=== PATIENT | female | born 1970 | race American Indian/Alaskan Native ===

== ENCOUNTER 2018-01-09 08:47 | Emergency (ER) | payer SELFPAY ==
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
[2018-01-09 10:38] LABS: Hematocrit 40.1 % (30.3-42.9); Hemoglobin 12.8 gm/dl (10.1-14.3); Mean Corpuscular HGB Conc 32 % (30-34); Mean Corpuscular Hemoglobin 27 pg (28-32); Mean Corpuscular Volume 84 fl (79-97); Platelet Count 289 K/mm3 (140-440); Red Cell Distribution Width 15.7 % (13.2-15.2)
[2018-01-09 11:01] LABS: Alanine Aminotransferase 12 units/L (7-56); Albumin 3.7 g/dL (3.9-5); BUN/Creatinine Ratio 11; Blood Urea Nitrogen 8 mg/dL (7-17); Calcium 8.5 mg/dL (8.4-10.2); Hemolysis Index 6
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
[2018-01-09 12:32] VITALS: BP 141/94
== END 2018-01-09 12:35 | disposition home or self-care (01) ==
LOC: ED 08:47
DX: S13.9XXA Sprain of joints and ligaments of unspecified parts of neck, initial encounter (principal); S33.5XXA Sprain of ligaments of lumbar spine, initial encounter; S09.90XA Unspecified injury of head, initial encounter; Z88.6 Allergy status to analgesic agent; Z88.5 Allergy status to narcotic agent; V49.49XA Driver injured in collision with other motor vehicles in traffic accident, initial encounter; Y93.89 Activity, other specified; Y92.89 Other specified places as the place of occurrence of the external cause; Y99.8 Other external cause status
CPT/HCPCS: 36415; 70450; 72125; 72128; 72131; 80053; 84703; 85027; 99284

== ENCOUNTER 2018-01-12 10:44 | Emergency (ER) | payer OTHER ==
[2018-01-12] MEDS ORDERED: VISTARIL PO ONE (14:04)
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
[2018-01-12 14:39] VITALS: BP 146/99
== END 2018-01-12 14:40 | disposition home or self-care (01) ==
LOC: ED 10:44
DX: S06.0X0A Concussion without loss of consciousness, initial encounter (principal); Z88.6 Allergy status to analgesic agent; Z88.5 Allergy status to narcotic agent; Z88.8 Allergy status to other drugs, medicaments and biological substances; Z88.0 Allergy status to penicillin; Z79.899 Other long term (current) drug therapy; V89.0XXA Person injured in unspecified motor-vehicle accident, nontraffic, initial encounter; Y93.89 Activity, other specified; Y99.8 Other external cause status; Y92.89 Other specified places as the place of occurrence of the external cause
CPT/HCPCS: 99282; Q0177

== ENCOUNTER 2018-01-15 14:55 | Emergency (ER) | payer SELFPAY ==
--- NOTE | 2018-01-15 16:08 | Cat Scan Report ---
FINAL REPORT EXAM: CT HEAD/BRAIN WO CON HISTORY: COON, blurred vision and dizziness TECHNIQUE: CT of the Head without IV contrast. PRIORS: None currently available. FINDINGS: There is no evidence for acute ischemia. There is no hemorrhage. There is no midline shift. There is no hydrocephalus. There is no mass. Age appropriate christianson-white matter attenuation is noted. There is no calvarial fracture. The temporal bones demonstrate aerated mastoid air cells. The middle ears appear unremarkable. Paranasal sinuses are unremarkable. Globes are intact. IMPRESSION: No acute intracranial findings.
[2018-01-15 16:32] LABS: Hematocrit 42.5 % (30.3-42.9); Hemoglobin 14.1 gm/dl (10.1-14.3); Mean Corpuscular HGB Conc 33 % (30-34); Mean Corpuscular Hemoglobin 27 pg (28-32); Mean Corpuscular Volume 82 fl (79-97); Platelet Count 336 K/mm3 (140-440); Red Blood Count 5.17 M/mm3 (3.65-5.03); Red Cell Distribution Width 15.3 % (13.2-15.2)
[2018-01-15 17:04] LABS: BUN/Creatinine Ratio 12; Blood Urea Nitrogen 11 mg/dL (7-17); Calcium 9.6 mg/dL (8.4-10.2); Hemolysis Index 73
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
[2018-01-15 21:59] VITALS: BP 128/77
== END 2018-01-15 21:40 | disposition home or self-care (01) ==
LOC: ED 14:55
DX: S06.0X9A Concussion with loss of consciousness of unspecified duration, initial encounter (principal); Z88.6 Allergy status to analgesic agent; Z88.4 Allergy status to anesthetic agent; Z88.0 Allergy status to penicillin; Z88.8 Allergy status to other drugs, medicaments and biological substances; V49.9XXA Car occupant (driver) (passenger) injured in unspecified traffic accident, initial encounter; Y93.89 Activity, other specified; Y99.8 Other external cause status; Y92.410 Unspecified street and highway as the place of occurrence of the external cause
CPT/HCPCS: 36415; 70450; 80048; 84703; 85027; 93005; 93010

== ENCOUNTER 2018-10-06 06:00 | Day surgery (SDC) | payer OTHER ==
[~2018-10-06 06:00] MED LIST: LACTATED RINGERS 1,000 ML IV SCH
[2018-10-06] MEDS ORDERED: ADRENALIN IV ONE ×2 (06:49→09:00)
[2018-10-06] MEDS ORDERED: SUBLIMAZE ONE (07:16)
[2018-10-06] MEDS ORDERED: DIPRIVAN 10 MG/ML IV ONE (07:16)
[2018-10-06] MEDS ORDERED: SUBLIMAZE IV PRN (07:34)
[2018-10-06] MEDS ORDERED: ZOFRAN IV PRN (07:34)
[2018-10-06] MEDS ORDERED: DILAUDID IV PRN (07:34)
[2018-10-06] MEDS ORDERED: NARCAN 0.4 MG/1 ML IV PRN (07:34)
--- NOTE | 2018-10-06 07:34 | Anesthesia Day of Surgery ---
Anesthesia Day of Surgery - Day of Surgery Patient Examined: Yes Patient H&P Reviewed: Yes Patient is NPO: Yes Beta Blockers: No Cardiac Clearance: No Pulmonary Clearance: No
--- NOTE | 2018-10-06 07:34 | Anesthesia Consultation ---
Anesthesia Consult and Med Hx Date of service: 10/06/18 - Airway Anesthetic Teeth Evaluation: Good ROM Head & Neck: Adequate Mental/Hyoid Distance: Adequate Mallampati Class: Class II Intubation Access Assessment: Good - Pulmonary Exam CTA: Yes - Cardiac Exam Cardiac Exam: RRR - Pre-Operative Health Status ASA Pre-Surgery Classification: ASA3 Proposed Anesthetic Plan: General Nerve Block: IS - Pulmonary Hx Smoking: No Hx Sleep Apnea: No (WESLEY PRE SCREEN HIGH RISK) - Cardiovascular System Hx Hypertension: No - Central Nervous System Hx Back Pain: Yes - Other Systems Hx Cancer: No
[2018-10-06] MEDS ORDERED: ZEMURON IV ONE (07:35)
[2018-10-06] MEDS ORDERED: QUELICIN ONE (07:35)
[2018-10-06] MEDS ORDERED: DECADRON ONE (07:35)
[2018-10-06] MEDS ORDERED: NEO SYNEPHRINE ONE (07:35)
[2018-10-06] MEDS ORDERED: ROBINUL ONE (07:35)
[2018-10-06] MEDS ORDERED: NEO SYNEPHRINE/NS Syringe(OR USE) IV ONE (07:35)
[2018-10-06] MEDS ORDERED: ZOFRAN ONE (07:35)
[2018-10-06] MEDS ORDERED: XYLOCAINE MPF 2% ONE (07:35)
[2018-10-06] MEDS ORDERED: NAROPIN O.5% ONE (07:41)
[2018-10-06] MEDS ORDERED: CLEOCIN 900 MG/50 mL 900 MG/50 ML BAG IV NR (07:45)
[2018-10-06] MEDS ORDERED: NACL 0.9% IR ONE (09:30)
--- NOTE | 2018-10-06 09:58 | Short Stay Summary ---
Short Stay Documentation Date of service: 10/06/18 - History H&P: obtained from office - Allergies and Medications Current Medications: Allergies aspirin Allergy (Verified 01/12/18 11:16) Swelling codeine Allergy (Verified 01/12/18 11:16) Swelling ibuprofen Allergy (Verified 09/25/18 12:19) Swelling morphine Allergy (Verified 01/12/18 11:16) Swelling NSAIDS (Non-Steroidal Anti-Inflamma Allergy (Verified 09/25/18 12:19) Swelling , HBP oxycodone [From Percocet] Allergy (Verified 01/12/18 11:16) Swelling Penicillins Allergy (Verified 01/12/18 11:16) Swelling NARCOTICS Adverse Reaction (Uncoded 09/25/18 12:19) Swelling Home Medications Medication Instructions Recorded Confirmed Last Taken Type hydrOXYzine PAMOATE [Vistaril] 25 mg PO Q6HR PRN 09/25/18 09/25/18 Unknown History Active Medications Fentanyl (Sublimaze) 50 mcg IV Q5MIN PRN PRN Reason: Pain , Severe (7-10) Stop: 10/06/18 20:00 Hydromorphone HCl (Dilaudid) 0.5 mg IV Q10MIN PRN PRN Reason: Pain , Severe (7-10) Stop: 10/06/18 20:00 Lactated Ringer's (Lactated Ringers) 1,000 mls @ 75 mls/hr IV DIRECT LOUIS Stop: 10/06/18 23:59 Clindamycin HCl (Cleocin 900 Mg/50 Ml) 900 mg in 50 mls @ 100 mls/hr IV PREOP NR; Protocol Stop: 10/06/18 23:59 Naloxone HCl (Narcan 0.4 Mg/1 Ml) 0.1 mg IV Q2MIN PRN PRN Reason: Res Rate </= 8 or 02 SAT < 92% Ondansetron HCl (Zofran) 4 mg IV ONCE PRN PRN Reason: Nausea And Vomiting - Brief post op/procedure progress note Date of procedure: 10/06/18 Pre-op diagnosis: persistent right shoulder pain, AC joint arthritis, partial rotator cuff te Post-op diagnosis: other (persistent right shoulder pain, AC joint arthritis, partial rotator cuff tear, extensive subacromial bursitis) Procedure: right shoulder arthroscopy subacromial decompression, distal clavicle excision, debridement of extensive subacromial bursitis and partial rotator cuff tear Anesthesia: GETA Findings: as above Surgeon: KATALINA ANDRADE Estimated blood loss: minimal Pathology: none Condition: stable - Disposition Condition at discharge: Good Disposition: DC-01 TO HOME OR SELFCARE Short Stay Discharge Plan Follow up with: PRIMARY CARE, [Primary Care Provider] - 7 Days
[2018-10-06 10:54] VITALS: BP 124/77
--- NOTE | 2018-10-06 13:17 | Operative Report ---
PREOPERATIVE DIAGNOSES: Persistent right shoulder pain, acromioclavicular joint hypertrophy with inferior spur of the distal clavicle and acromion causing impingement upon the rotator cuff, partial thickness rotator cuff tear. POSTOPERATIVE DIAGNOSES: Persistent right shoulder pain, acromioclavicular joint hypertrophy with inferior spurs distal clavicle and acromion causing significant impingement upon the rotator cuff, partial thickness tearing of the subscapularis tendon, encompassing approximately 10%-15% of the width of the tendon intraarticularly as well as partial bursal-sided tearing of the supraspinatus tendon, encompassing approximately 10% of the width of the tendon as well and extensive subacromial bursitis. OPERATIVE PROCEDURE: Right shoulder arthroscopy, subacromial decompression, distal clavicle excision and debridement of extensive subacromial bursitis and debridement of partial thickness rotator cuff tear. SURGEON: Dr. Jacob Gillespie. NUCLEAR POWERPLANT MECHANIC HELPER: None. ANESTHESIA: General plus an interscalene block to the operative right upper extremity. PREOPERATIVE ANTIBIOTICS: Clindamycin 900 mg IV given within 1 hour of skin incision. DVT PROPHYLAXIS: Bilateral knee high compression hose and SCD pumps to bilateral lower extremities. OPERATIVE INSTRUMENTATION: None. OPERATIVE COMPLICATIONS: None. OPERATIVE HISTORY AND PHYSICAL: This is a 47-year-old female, who is right-hand dominant, who has had persistent progressively worsening right shoulder pain. The pain has failed to improve despite extensive nonoperative treatment and is markedly limiting her activities of daily living. After failing to improve with nonoperative treatment, we discussed surgical treatment alternatives of surgical and nonsurgical including risks and benefits of both. After a long lengthy discussion, the patient opted to proceed with operative intervention. This will entail a right shoulder arthroscopy, subacromial decompression, distal clavicle excision, possible rotator cuff repair and surgery as indicated. The risk of which were discussed to include but not exclusive of infection, blood loss, nerve damage, loss of range of motion, and persistent pain. Again, the patient understood, all of her questions were answered and she wished to proceed with operative intervention. OPERATIVE PROCEDURE: The patient was seen in the preoperative holding area, at which point informed consent was reviewed and the appropriate right upper extremity was identified and then marked. Anesthesia then performed an interscalene block to the right upper extremity. After confirmation of adequate analgesia of the right upper extremity, the patient was then brought back to the operating room and placed supine on the standard operating room table with a beach chair positioner already in place. General anesthesia was then administered and an endotracheal tube was inserted. After confirmation of adequate general anesthesia and checking appropriate placement of the endotracheal tube, we then made sure that all bony prominences were well padded. We made sure that there were no wrinkles and compression stockings on bilateral lower extremities and a thigh high SCD pumps were applied to bilateral lower extremities. The patient was then sat up in the beach chair position using the beach chair positioner, which was already in place and her head was secured in a nice neutral position. The well left arm was secured in a neutral position of the patient's side with the aid of the well arm garnica. A pillow was placed beneath the posterior aspect of bilateral lower extremities, placed in slight flexion of the hips and knees, making sure the popliteal fossa was free and clear and her heels were well padded with Eggcrate. Following this, the right upper extremity was then examined under anesthesia. The patient was seen to have full range of motion and there was no evidence of instability. Following examination under anesthesia, the right upper extremity was then prepped and draped in the usual sterile fashion. After prepping and draping, a timeout was called and appropriate right upper extremity was identified which again had been marked in the preoperative holding room area. We began our procedure by first making a standard posterior portal with a #15 blade. Once the portal was established, the cannula with the blunt trocar was inserted into the intra-articular aspect of the glenohumeral joint. This went without difficulty or damage to articular cartilage. Once in place, the arthroscopic camera was immediately placed in the anterior aspect of the shoulder joint. We established our anterior portal by first inserting an 18-gauge spinal needle under direct arthroscopic visualization from the subscapularis and biceps tendons. Once confirmed to be in appropriate position, a 15 blade was then used to establish an anterior portal. Once the portal was established, the blunt trocar was inserted to widen the portal site. Following that an arthroscopic probe, we began our diagnostic arthroscopy in the anterior aspect of the shoulder joint, where the patient was seen to have a partial tear of the subscapularis tendon complex approximately 10%-15% of the width of the tendon. This was debrided using 4.0 meniscal shaver and hemostasis was achieved with the Arthrocare ablation wand. Once completed, we turned our attention to the glenohumeral joint, where there was seen to be normal articular cartilage. There were no tears in the anterior superior or posterior labrum. Inspection of the axillary recess showed to be free and clear of all loose bodies. The biceps tendon was seen to be intact. Next, the shoulder was in its normal relation without any tearing. Inspection of the articular side of the rotator cuff showed to be intact and stable when probed. There was a negative drive-through sign. There was certainly no instability. The arthroscopic pump was turned off to make sure there was good hemostasis. Once this was confirmed, the extraneous fluid was suctioned from the glenohumeral joint using the arthroscopic cannula. Following this, all the arthroscopic instrumentation was removed and then placed in the subacromial space. Once in the subacromial space, we saw there was severe extensive subacromial bursitis. A third incision was made in the lateral aspect of the shoulder in line with the distal clavicle well away from axillary nerve. Once the incision was made, a blunt trocar was inserted to widen the portal site. Following that, we debrided the extensive subacromial bursitis using the 4.0 meniscal shaver. Once debrided, the arm was placed through a full range of motion. We saw that there was severe impingement of the rotator cuff upon the undersurface of both the acromion and the distal clavicle. Following this, the soft tissue was removed from the undersurface of the acromion using Arthrocare ablation wand and then using the 4.0 hooded barrel bur, we carried out a subacromial decompression in standard fashion going from inferior to superior, posterior to anterior making sure not to leave any residual anterior hook. We then turned our attention to the distal clavicle, which was also seen to be arthritic and then using the 4.0 hooded barrel bur, we carried distal clavicle excision to a depth of approximately 6-8 mm. Once this was completed, we turned our attention to the bursal side of the rotator cuff, where there was a partial thickness tear of the supraspinatus tendon in the area of the impinging spurs of the acromion encompassing approximately 10% with tendon. This was debrided using 4.0 meniscal shaver. Once completed, the arm was again placed through a full range of motion under direct arthroscopic visualization and we confirmed that there was no further impingement of the rotator cuff upon the undersurface of the acromion or the distal clavicle. There was a thickened markedly inflamed coracoacromial ligament contributing to impingement. Therefore, a portion of this was taken down using the Arthrocare ablation wand, making careful attention to cauterize the acromial branch of the thoracoacromial artery. Once completed, the arthroscopic pump was turned off to make sure there was good hemostasis. Once this was confirmed, the extraneous fluid was suctioned from the subacromial space using the arthroscopic cannula. Following this, all arthroscopic instrumentation was removed. The 3 portal sites were closed with 3-0 nylon in simple fashion. Adaptic, 4 x 4s, ABD, Medipore dressing, the small abduction sling and the Donjoy Cryo/Cuff blanket was applied. The patient was then sat down from beachchair into the supine position, was awakened from general anesthesia without complications and taken to the recovery room in stable condition. Standard postoperative orders were written. [facility]# [id number] PEGGY/TAYO
--- NOTE | 2018-10-06 16:47 | Post Anesthesia Evaluation ---
- Post Anesthesia Evaluation Patient Participated: Yes Airway Patent: Yes Stable Respiratory Function: Yes Nausea/Vomiting: No Temp > 96.8F: Yes Pain Manageable: Yes Adequeate Hydration: Yes Anesthesia Complications: No
== END 2018-10-06 11:40 | disposition home or self-care (01) ==
LOC: OR 06:00
PROVIDERS: ATTEND Orthopaedic Surgery
DX: M75.51 Bursitis of right shoulder (principal); M75.41 Impingement syndrome of right shoulder; M75.101 Unspecified rotator cuff tear or rupture of right shoulder, not specified as traumatic; G43.909 Migraine, unspecified, not intractable, without status migrainosus; K21.9 Gastro-esophageal reflux disease without esophagitis; Z88.6 Allergy status to analgesic agent; Z88.0 Allergy status to penicillin; Z88.5 Allergy status to narcotic agent; Z79.899 Other long term (current) drug therapy; Z86.711 Personal history of pulmonary embolism; Z98.890 Other specified postprocedural states; Z88.8 Allergy status to other drugs, medicaments and biological substances
CPT/HCPCS: 29822; 29824; 29826; 64450; 81025; 82962; A4217; J0171; J0330; J1100; J2370; J2405; J2704; J2795; J3010; J7120; L1830

== ENCOUNTER 2018-10-09 09:22 | Emergency (ER) | payer SELFPAY ==
[2018-10-09 10:26] LABS: Basophils # (Auto) 0.1 K/mm3 (0.0-0.1); Eosinophils # (Auto) 0.1 K/mm3 (0.0-0.4); Eosinophils % (Auto) 2.3 % (0.0-4.3); Hematocrit 36.7 % (30.3-42.9); Hemoglobin 12.1 gm/dl (10.1-14.3); Lymphocytes # (Auto) 1.2 K/mm3 (1.2-5.4); Lymphocytes % (Auto) 19.3 % (13.4-35.0); Mean Corpuscular HGB Conc 33 % (30-34); Mean Corpuscular Volume 81 fl (79-97); Monocytes # (Auto) 0.5 K/mm3 (0.0-0.8); Monocytes % (Auto) 8.3 % (0.0-7.3); Platelet Count 290 K/mm3 (140-440); Red Blood Count 4.55 M/mm3 (3.65-5.03); Red Cell Distribution Width 15.5 % (13.2-15.2)
[2018-10-09 10:37] LABS: INR 0.84 (0.87-1.13)
[2018-10-09 10:38] LABS: Partial Thromboplastin Time 21.7 Sec. (24.2-36.6)
[2018-10-09 10:48] LABS: BUN/Creatinine Ratio 14; Blood Urea Nitrogen 13 mg/dL (7-17); Calcium 8.7 mg/dL (8.4-10.2); Hemolysis Index 5
[2018-10-09 10:53] LABS: Creatine Kinase MB < 1.0 ng/mL (0.0-4.0)
--- NOTE | 2018-10-09 10:53 | Emergency Department Report ---
HPI - General Chief Complaint: Dyspnea/Respdistress Time Seen by Provider: 10/09/18 10:02 - HPI HPI: 47-year-old female presents to the emergency department with a 2-3 day history of shortness of breath after having right rotator cuff surgery done here by Dr. Katalina Gillespie. The patient has a history of previous PE. Patient was given a dose of Lovenox tonight of her surgery and then was given a prescription to take Lovenox but the patient was unable to fill it until last night, 2 days later. She denies any chest pain but she feels like she has difficulty taking deep breaths. She also has a history of borderline diabetes, diet controlled acid reflux, previous migraines. She is not a tobacco smoker and denies any illicit drug use. No primary care physician. ED Past Medical Hx - Past Medical History Previous Medical History?: Yes Hx Hypertension: No Hx Diabetes: (UNSURE- RECENT HIGH A1C) Hx Pulmonary Embolism: Yes (2005- ON COUMADIN X 6 MONTHS) Hx GERD: Yes (DIET CONTROLLED) Hx Headaches / Migraines: Yes (MIGRAINES) - Surgical History Past Surgical History?: Yes Additional Surgical History: left knee scope 2005- dvt devolped during procedure, placed on coumadin for 6 months - Social History Smoking Status: Never Smoker Substance Use Type: None - Medications Home Medications: Home Medications Medication Instructions Recorded Confirmed Last Taken Type hydrOXYzine PAMOATE [Vistaril] 25 mg PO Q6HR PRN 09/25/18 09/25/18 Unknown History Enoxaparin [Lovenox] 30 mg SQ Q12HR 7 Days #14 syringe 10/06/18 Unknown Rx traMADol [Ultram] 50 mg PO Q6HR PRN #30 tablet 10/06/18 Unknown Rx ALBUTEROL Inhaler (OR & NICU) 2 puff IH QID PRN #1 inhalation 10/09/18 Unknown Rx [ProAir HFA Inhaler] Fluticasone [Flonase] 1 spray NS QDAY #1 bottle 10/09/18 Unknown Rx guaiFENesin [Mucinex] 600 mg PO BID #10 tab.er.12h 10/09/18 Unknown Rx ED Review of Systems ROS: Stated complaint: JESSICA Other details as noted in HPI Comment: All other systems reviewed and negative Constitutional: denies: chills, fever Eyes: denies: eye pain, vision change ENT: denies: ear pain, throat pain Respiratory: shortness of breath. denies: wheezing Cardiovascular: denies: chest pain, edema Gastrointestinal: denies: abdominal pain, vomiting Genitourinary: denies: dysuria, frequency Musculoskeletal: denies: back pain, arthralgia Skin: denies: rash, lesions Neurological: denies: headache, weakness Physical Exam - Physical Exam Vital Signs: Vital Signs 10/09/18 09:32 Temperature 98.4 F Pulse Rate 86 Respiratory 17 Rate Blood Pressure 141/90 O2 Sat by Pulse 99 Oximetry Physical Exam: GENERAL: The patient is well-developed well-nourished. HENT: Normocephalic. Atraumatic. Patient has moist mucous membranes. EYES: Extraocular motions are intact. Pupils equal reactive to light bilaterally. NECK: Supple. Trachea is midline. CHEST/LUNGS: Clear to auscultation. There is no respiratory distress noted. HEART/CARDIOVASCULAR: Regular. There is no tachycardia. There is no murmur. ABDOMEN: Abdomen is soft, nontender. Patient has normal bowel sounds. There is no abdominal distention. SKIN: Skin is warm and dry. NEURO: The patient is awake, alert, and oriented. The patient is cooperative. The patient has no focal neurologic deficits. The patient has normal speech. MUSCULOSKELETAL: The right upper extremity is immobilized construct body secondary to recent rotator cuff surgery. She is neurovascularly intact. ED Course Vital Signs 10/09/18 09:32 Temperature 98.4 F Pulse Rate 86 Respiratory 17 Rate Blood Pressure 141/90 O2 Sat by Pulse 99 Oximetry ED Medical Decision Making - Lab Data Result diagrams: 10/09/18 10:09 10/09/18 10:09 - EKG Data -: EKG Interpreted by Me EKG shows normal: sinus rhythm, axis, intervals, QRS complexes, ST-T waves Rate: normal - EKG Data When compared to previous EKG there are: previous EKG unavailable Interpretation: normal EKG - Radiology Data Radiology results: report reviewed, image reviewed interpreted by me: Chest x-ray does not show any acute process. There are no pleural effusions, obvious pneumonia and there is no pneumothorax. Abdominal x-ray shows nonspecific nonobstructive bowel gas CT ABDOMEN AND PELVIS WITHOUT CONTRAST INDICATION: Evaluate for free air. COMPARISON: None similar. FINDINGS: Noncontrast abdomen and pelvis CT performed. LUNG BASES: Left hemidiaphragm mildly higher than the right. Nonspecific distal esophageal wall prominence/thickening, not excluded for gastroesophageal reflux and/or hiatal hernia, amongst others. ABDOMEN: Please note that sensitivity to detect small visceral lesions is limited due to the absence of intravenous or oral contrast. Exam is limited due to streak artifact from patient's arms across the upper abdomen. However, grossly unremarkable unenhanced liver, spleen, gallbladder, pancreas, adrenals, aorta and IVC. Nonhydronephrotic kidneys with contrast excretion from earlier administration noted. Nonopacified GI tract valuation limited, though grossly nonobstructive. Few descending colon diverticuli. Small fat containing umbilical hernia with a transverse neck of 1.8 cm. Large lobulated soft tissue arising from the pelvis noted within the lower abdomen and rising up to the level of the lower pole of the left kidney as on axial series 2, from images 49 inferiorly. It also demonstrates few intrinsic calcified fibroid regions as in the right lower quadrant measuring 2.9 cm on axial image 74. No ascites or definite size significant adenopathy. No pneumoperitoneum. PELVIS: Myomatous uterus estimated at approximately 19 cm craniocaudal with maximum AP and transverse measurements in the lower abdomen approximately 12 x 25 cm as on axial series 2, image 61. Dense excreted contrast opacifying the urinary bladder create streak artifact, limiting exam. Mild rectosigmoid stool. No free fluid or significant adenopathy. A 1 cm left proximal femoral nonspecific medullary sclerotic focus, axial image 109, series 2. Mild bilateral hip and SI joint degenerative changes. CONCLUSION: No acute CT abnormality on this limited, unenhanced exam with various other findings, including a large, myomatous uterus extending into the lower abdomen, as detailed above. Please correlate. Thank you for the opportunity to participate in this patient's care. Transcribed By: RS Dictated By: SHANI KWOK MD Electronically Authenticated By: SHANI KWOK MD Signed Date/Time: 10/09/18 9547 PROCEDURE: CT ANGIO CHEST TECHNIQUE: Computerized tomographic angiography of the chest was performed after the IV injection of iodinated nonionic contrast including image processing. The image data was postprocessed using 2-dimensional multiplanar reformatted (MPR) and 3-dimensional (MIP and/or volume rendered) techniques. Automated exposure control, adjustment of mA and/or kV according to patient size, or iterative reconstruction dose optimization techniques were utilized. Coronal and sagittal reconstructed imaging provided. CT DOSE LENGTH PRODUCT: 764.7 mGy-cm. HISTORY: SOB, post op, Hx of PE COMPARISONS: None currently available. FINDINGS: No pneumothorax. No effusion. No consolidation. No endobronchial lesion. Main pulmonary artery is unremarkable. No pulmonary embolism. No aneurysm. No dissection. Major branch arteries are within normal limits. No significant atherosclerotic disease. Cardiac silhouette is within normal limits. No pericardial effusion. No obvious coronary artery disease. There is no axillary adenopathy. There is no hilar or mediastinal mass or adenopathy. Limited images of the thyroid gland are unremarkable. Limited images of the esophagus are unremarkable. Series 4:1-28 demonstrates soft tissue stranding and subcutaneous gas in the right lower cervical region/shoulder. Surrounding minimal stranding noted. The right deltoid and pectoralis muscles do appear slightly prominent with stranding. No distinct fluid collection identified. Free air in the abdomen. Bones: No suspicious osseous lesions on this limited examination of the skeleton. Metastatic disease better evaluated with bone scan. Degenerative changes are present in the spine. IMPRESSION: * Nonspecific muscular prominence with soft tissue stranding and subcutaneous gas in the right lower cervical region/shoulder is nonspecific and could be related to recent surgery. Free air in the upper abdomen may be related to recent surgery. Please correlate with clinical history. * No pulmonary last. No aortic aneurysm. No dissection. This document is electronically signed by Matthieu Mata MD., Oct 09 2018 12:30:46 PM ET Transcribed By: TYM Dictated By: MATTHIEU MATA MD Electronically Authenticated By: MATTHIEU MATA MD Signed Date/Time: 10/09/18 1232 - Medical Decision Making This patient came into the emergency department with complaint of some shortness of breath has been going on since after her rotator cuff surgery, a few days ago. Vital signs are stable including being afebrile and no hypoxia. Patient does not appear in any respiratory distress. She has no complaint of any lower extremity swelling. EKG did not show any signs of ST elevation MT, ischemia or dysrhythmia. Chest x-ray did not show any pleural effusions, pneumonia, pneumothorax, focal consolidation, or any other acute process. Given the recent surgery and therefore some immobility, history of previous PE and some recent medication noncompliance with the Lovenox, a CT angiography of the chest was performed to rule out a pulmonary embolism. The results did not show any PE but was read by radiology is concern for some incidental upper abdominal free air found. For this reason, CT of the abdomen and pelvis was then performed that did not show any free air or any other acute process. The patient was given a breathing treatment with some good improvement of her symptoms. She was seen ambulatory and did not have any increased work of breathing or signs of any respiratory distress. She will be discharged home with an albuterol inhaler, Flonase and a few days of some Mucinex for her complaint of secretions. She will follow-up with her primary care physician and orthopedist, and will return to the ER with any worsening of her symptoms, development of chest pain, or with any acute distress. - Differential Diagnosis PE, pneumonia, bronchitis, asthma Critical Care Time: No Critical care attestation.: If time is entered above; I have spent that time in minutes in the direct care of this critically ill patient, excluding procedure time. ED Disposition Clinical Impression: Shortness of breath Disposition: DC-01 TO HOME OR SELFCARE Is pt being admited?: No Condition: Stable Instructions: Dyspnea (ED) Additional Instructions: Please follow-up with your primary care physician and your orthopedist. Return to the emergency Department with any worsening of your symptoms or any acute distress. Prescriptions: Fluticasone [Flonase] 1 spray NS QDAY #1 bottle guaiFENesin [Mucinex] 600 mg PO BID #10 tab.er.12h ALBUTEROL Inhaler (OR & NICU) [ProAir HFA Inhaler] 2 puff IH QID PRN #1 inhalation PRN Reason: Shortness Of Breath Referrals: PRIMARY CARE, [Referring] - 3-5 Days KATALINA GILLESPIE MD [Staff Physician] - 3-5 Days Time of Disposition: 14:48
--- NOTE | 2018-10-09 11:09 | XRay Report ---
PORTABLE CHEST INDICATION: Chest pain, shortness of breath. COMPARISON: None similar. FINDINGS: Portable, frontal chest radiograph demonstrates left hemidiaphragm approximately 2.5 cm higher than the left. Normal cardiomediastinal silhouette. Clear lungs. Bilateral AC joint degenerative changes/irregularities possible. Subtle right supraclavicular subcutaneous emphysema also not entirely excluded. EKG leads. CONCLUSION: No acute chest process with few other findings, as above. Please correlate. Thank you for the opportunity to participate in this patient's care.
[2018-10-09] MEDS ORDERED: DUONEB *Not for PRN Use IH ONE (11:52)
--- NOTE | 2018-10-09 12:32 | Cat Scan Report ---
PROCEDURE: CT ANGIO CHEST TECHNIQUE: Computerized tomographic angiography of the chest was performed after the IV injection of iodinated nonionic contrast including image processing. The image data was postprocessed using 2-di mensional multiplanar reformatted (MPR) and 3-dimensional (MIP and/or volume rendered) techniques. Au tomated exposure control, adjustment of mA and/or kV according to patient size, or iterative reconstr uction dose optimization techniques were utilized. Coronal and sagittal reconstructed imaging provide d. CT DOSE LENGTH PRODUCT: 764.7 mGy-cm. HISTORY: SOB, post op, Hx of PE COMPARISONS: None currently available. FINDINGS: No pneumothorax. No effusion. No consolidation. No endobronchial lesion. Main pulmonary artery is unremarkable. No pulmonary embolism. No aneurysm. No dissection. Major branch arteries are within normal limits. No significant atheroscle rotic disease. Cardiac silhouette is within normal limits. No pericardial effusion. No obvious coronary artery disea se. There is no axillary adenopathy. There is no hilar or mediastinal mass or adenopathy. Limited images of the thyroid gland are unremarkable. Limited images of the esophagus are unremarkable. Series 4:1-28 demonstrates soft tissue stranding and subcutaneous gas in the right lower cervical reg ion/shoulder. Surrounding minimal stranding noted. The right deltoid and pectoralis muscles do appear slightly prominent with stranding. No distinct fluid collection identified. Free air in the abdomen. Bones: No suspicious osseous lesions on this limited examination of the skeleton. Metastatic disease better evaluated with bone scan. Degenerative changes are present in the spine. IMPRESSION: * Nonspecific muscular prominence with soft tissue stranding and subcutaneous gas in the right lower cervical region/shoulder is nonspecific and could be related to recent surgery. Free air in the uppe r abdomen may be related to recent surgery. Please correlate with clinical history. * No pulmonary last. No aortic aneurysm. No dissection. This document is electronically signed by Matthieu Green MD., Oct 09 2018 12:30:46 PM ET
--- NOTE | 2018-10-09 13:38 | XRay Report ---
ABDOMEN RADIOGRAPHS INDICATION: Abdominal pain. COMPARISON: None similar. FINDINGS: Frontal abdominal radiographs demonstrate nonobstructive bowel gas pattern. Bilateral contrast excretion noted from CT earlier today. Lung bases/upper abdomen excluded from the superior radiographic margin. EKG leads. Intact bones. CONCLUSION: No acute abdominal radiographic abnormality, as described. Thank you for the opportunity to participate in this patient's care.
--- NOTE | 2018-10-09 14:38 | Cat Scan Report ---
CT ABDOMEN AND PELVIS WITHOUT CONTRAST INDICATION: Evaluate for free air. COMPARISON: None similar. FINDINGS: Noncontrast abdomen and pelvis CT performed. LUNG BASES: Left hemidiaphragm mildly higher than the right. Nonspecific distal esophageal wall prominence/thickening, not excluded for gastroesophageal reflux and/or hiatal hernia, amongst others. ABDOMEN: Please note that sensitivity to detect small visceral lesions is limited due to the absence of intravenous or oral contrast. Exam is limited due to streak artifact from patient's arms across the upper abdomen. However, grossly unremarkable unenhanced liver, spleen, gallbladder, pancreas, adrenals, aorta and IVC. Nonhydronephrotic kidneys with contrast excretion from earlier administration noted. Nonopacified GI tract valuation limited, though grossly nonobstructive. Few descending colon diverticuli. Small fat containing umbilical hernia with a transverse neck of 1.8 cm. Large lobulated soft tissue arising from the pelvis noted within the lower abdomen and rising up to the level of the lower pole of the left kidney as on axial series 2, from images 49 inferiorly. It also demonstrates few intrinsic calcified fibroid regions as in the right lower quadrant measuring 2.9 cm on axial image 74. No ascites or definite size significant adenopathy. No pneumoperitoneum. PELVIS: Myomatous uterus estimated at approximately 19 cm craniocaudal with maximum AP and transverse measurements in the lower abdomen approximately 12 x 25 cm as on axial series 2, image 61. Dense excreted contrast opacifying the urinary bladder create streak artifact, limiting exam. Mild rectosigmoid stool. No free fluid or significant adenopathy. A 1 cm left proximal femoral nonspecific medullary sclerotic focus, axial image 109, series 2. Mild bilateral hip and SI joint degenerative changes. CONCLUSION: No acute CT abnormality on this limited, unenhanced exam with various other findings, including a large, myomatous uterus extending into the lower abdomen, as detailed above. Please correlate. Thank you for the opportunity to participate in this patient's care.
[2018-10-09 15:26] VITALS: BP 123/69
== END 2018-10-09 15:25 | disposition home or self-care (01) ==
LOC: ED 09:22
DX: R06.02 Shortness of breath (principal); E11.9 Type 2 diabetes mellitus without complications; K21.9 Gastro-esophageal reflux disease without esophagitis; G43.909 Migraine, unspecified, not intractable, without status migrainosus; Z86.711 Personal history of pulmonary embolism; Z88.6 Allergy status to analgesic agent; Z88.0 Allergy status to penicillin; Z88.8 Allergy status to other drugs, medicaments and biological substances
CPT/HCPCS: 36415; 71045; 71275; 74019; 74176; 80048; 82550; 82553; 84484; 84703; 85025; 85610; 85730; 93005; 93010; 94640; 99284; Q9967

== ENCOUNTER 2019-09-02 07:09 | Emergency (ER) | payer SELFPAY ==
--- NOTE | 2019-09-02 08:10 | XRay Report ---
CHEST 2 VIEWS INDICATION: Upper Respiratory Infection. COMPARISON: 10/09/2018 FINDINGS: Support devices: None. Heart: Within normal limits. Lungs/pleura: No acute air space or interstitial disease. No pneumothorax. Additional findings: None. IMPRESSION: No acute findings. Signer Name: Elan Turner Jr, MD Signed: 09/02/2019 8:05 AM Workstation Name: [id number]
[2019-09-02 08:11] VITALS: BP 120/84
[2019-09-02 08:20] LABS: Basophils % (Auto) 0.6 % (0.0-1.8); Eosinophils % (Auto) 0.6 % (0.0-4.3); Hematocrit 43.2 % (30.3-42.9); Hemoglobin 14.1 gm/dl (10.1-14.3); Lymphocytes # (Auto) 1.4 K/mm3 (1.2-5.4); Mean Corpuscular HGB Conc 33 % (30-34); Mean Corpuscular Volume 80 fl (79-97); Monocytes # (Auto) 0.5 K/mm3 (0.0-0.8); Monocytes % (Auto) 10.6 % (0.0-7.3); Platelet Count 272 K/mm3 (140-440)
--- NOTE | 2019-09-02 08:26 | Emergency Department Report ---
ED Chest Pain HPI - General Chief Complaint: Upper Respiratory Infection Stated Complaint: JESSICA, FEVER Time Seen by Provider: 09/02/19 08:11 Source: patient Mode of arrival: Ambulatory Limitations: No Limitations - History of Present Illness Initial Comments: 48-year-old -[place] female presents to the emergency department with a complaint of a lingering mixed dry and productive cough for the past 3 weeks, and more recently the complaint of some shortness of breath and chest soreness over the past few days. She denies any past medical history but does have a previous history of pulmonary embolism in 2005. She denies any tobacco or illicit drug use. The patient drove down to [facility] a few weeks ago but no international travel. The patient lives alone and there is no sick contacts at home or obvious known exposure to anyone with the novel coronavirus. She has not taken anything for symptoms prior to presentation. Patient does complain of a few days of fever with a T-max of 101 F. Severity scale (0 -10): 7 - Related Data Home Medications Medication Instructions Recorded Confirmed Last Taken hydrOXYzine PAMOATE [Vistaril] 25 mg PO Q6HR PRN 09/25/18 09/25/18 Unknown Previous Rx's Medication Instructions Recorded Last Taken Type Enoxaparin [Lovenox] 30 mg SQ Q12HR 7 Days #14 syringe 10/06/18 Unknown Rx traMADoL [Ultram] 50 mg PO Q6HR PRN #30 tablet 10/06/18 Unknown Rx Fluticasone [Flonase] 1 spray NS QDAY #1 bottle 10/09/18 Unknown Rx guaiFENesin [Mucinex] 600 mg PO BID #10 tab.er.12h 10/09/18 Unknown Rx Albuterol INH(or & Nicu Only) 2 puff IH QID PRN #1 inhalation 09/02/19 Unknown Rx [ProAir HFA Inhaler] Benzonatate [Tessalon Perles] 100 mg PO Q8HR PRN #20 capsule 09/02/19 Unknown Rx Allergies Allergy/AdvReac Type Severity Reaction Status Date / Time aspirin Allergy Swelling Verified 09/02/19 07:11 codeine Allergy Swelling Verified 09/02/19 07:11 ibuprofen Allergy Swelling Verified 09/02/19 07:11 morphine Allergy Swelling Verified 09/02/19 07:11 NSAIDS (Non-Steroidal Allergy Swelling , Verified 09/02/19 07:11 Anti-Inflamma HBP oxycodone [From Percocet] Allergy Swelling Verified 09/02/19 07:11 Penicillins Allergy Swelling Verified 09/02/19 07:11 NARCOTICS AdvReac Swelling Uncoded 09/25/18 12:19 Heart Score - HEART Score History: Slightly suspicious EKG: Normal Age: 45-65 Risk factors: No known risk factors Troponin: < normal limit HEART Score: 1 - Critical Actions Critical Actions: 0-3 pts:0.9-1.7%risk of adverse cardiac event.Candidate for discharge ED Review of Systems ROS: Stated complaint: JESSICA, FEVER Other details as noted in HPI Comment: All other systems reviewed and negative Constitutional: chills, fever Eyes: denies: eye pain, vision change ENT: denies: ear pain, throat pain Respiratory: cough, shortness of breath Cardiovascular: chest pain (soreness). denies: edema Gastrointestinal: denies: abdominal pain, vomiting Genitourinary: denies: dysuria, discharge Musculoskeletal: denies: back pain, arthralgia Skin: denies: rash, lesions Neurological: denies: headache, weakness ED Past Medical Hx - Past Medical History Hx Hypertension: No Hx Diabetes: (UNSURE- RECENT HIGH A1C) Hx Pulmonary Embolism: Yes (2005- ON COUMADIN X 6 MONTHS) Hx GERD: Yes (DIET CONTROLLED) Hx Headaches / Migraines: Yes (MIGRAINES) - Surgical History Additional Surgical History: left knee scope 2005- dvt devolped during procedure, placed on coumadin for 6 months - Social History Smoking Status: Never Smoker Substance Use Type: Alcohol - Medications Home Medications: Home Medications Medication Instructions Recorded Confirmed Last Taken Type hydrOXYzine PAMOATE [Vistaril] 25 mg PO Q6HR PRN 09/25/18 09/25/18 Unknown History Enoxaparin [Lovenox] 30 mg SQ Q12HR 7 Days #14 syringe 10/06/18 Unknown Rx traMADoL [Ultram] 50 mg PO Q6HR PRN #30 tablet 10/06/18 Unknown Rx Fluticasone [Flonase] 1 spray NS QDAY #1 bottle 10/09/18 Unknown Rx guaiFENesin [Mucinex] 600 mg PO BID #10 tab.er.12h 10/09/18 Unknown Rx Albuterol INH(or & Nicu Only) 2 puff IH QID PRN #1 inhalation 09/02/19 Unknown Rx [ProAir HFA Inhaler] Benzonatate [Tessalon Perles] 100 mg PO Q8HR PRN #20 capsule 09/02/19 Unknown Rx ED Physical Exam - General Limitations: No Limitations - Other Other exam information: GENERAL: The patient is well-developed well-nourished. HENT: Normocephalic. Atraumatic. Patient has moist mucous membranes. EYES: Extraocular motions are intact. NECK: Supple. Trachea is midline. CHEST/LUNGS: Clear to auscultation. No tachypnea or accessory muscle use. No cough heard during examination. There is no respiratory distress noted. Chest soreness/pain is reproducible to palpation but no crepitus or deformity. HEART/CARDIOVASCULAR: Regular. There is no tachycardia. There is no murmur. ABDOMEN: Abdomen is soft, nontender. Patient has normal bowel sounds. Obese habitus. SKIN: Skin is warm and dry. NEURO: The patient is awake, alert, and oriented. The patient is cooperative. Normal speech. MUSCULOSKELETAL: There is no tenderness or deformity. There is no evidence of acute injury. ED Course Vital Signs 09/02/19 08:02 Temperature 99.8 F H Pulse Rate 106 H Respiratory 22 Rate Blood Pressure 120/84 [Right] O2 Sat by Pulse 98 Oximetry CARLOS score - Carlos Score Age > 65: (0) No Aspirin use within the Past 7 Days: (0) No 3 or more CAD Risk Factors: (0) No 2 or more Angina events in past 24 hrs: (1) Yes (If pain is considered angina, more likely costochondritis) Known CAD with more than 50% Stenosis: (0) No Elevated Cardiac Markers: (0) No ST Deviation Greater than 0.5mm: (0) No CARLOS Score: 1 ED Medical Decision Making - Lab Data Result diagrams: 09/02/19 07:36 09/02/19 07:36 - EKG Data -: EKG Interpreted by Me EKG shows normal: sinus rhythm, axis, intervals, QRS complexes, ST-T waves Rate: tachycardia (103 bpm) - EKG Data When compared to previous EKG there are: previous EKG unavailable Interpretation: normal EKG - Radiology Data Radiology results: image reviewed interpreted by me: Chest x-ray does not show any acute process. There are no pleural effusions, obvious pneumonia and there is no pneumothorax. - Medical Decision Making This patient presents to the emergency department with a three-week history of a lingering cough and more recently some shortness of breath and chest soreness. The discomfort is reproducible to palpation of the chest wall without any cre pitus or deformity and is most likely secondary to her coughing. EKG was normal without ST elevation AL, ischemia or dysrhythmia. Chest x-ray did not show any pneumonia, pleural effusions, pneumothorax, focal consolidation, or any other acute process. Patient is low on both the heart and CARLOS score. The patient appears to be developing or has a low-grade fever but the rest of her vital signs are unremarkable including no hypoxia. Patient appears safe for discharge home at this time. She has been instructed to go into a 14-day self quarantine as she does have a low-grade fever with the complaints of cough and shortness of breath, without any obvious other source. This may be bronchitis versus a generic viral URI. She was not checked for influenza today as her symptoms may have started 3 weeks ago, or these more recent symptoms started 3 days ago, and she is outside of the window for Tamiflu. The patient has been instructed to return to the emergency department immediately with any worsening of her symptoms or with any acute distress. She understands and agrees to the plan. - Differential Diagnosis Bronchitis, Viral URI, Covid-19, PE, AL Critical Care Time: No Critical care attestation.: If time is entered above; I have spent that time in minutes in the direct care of this critically ill patient, excluding procedure time. ED Disposition Clinical Impression: Viral syndrome, Bronchitis Disposition: DC-01 TO HOME OR SELFCARE Is pt being admited?: No Condition: Stable Instructions: Acute Bronchitis (ED), Viral Syndrome (ED) Additional Instructions: Your information was given to the [facility]. If they deem that you meet criteria for testing of Covid-19, they will contact you. You should go under a 14-day quarantine at home. Use Tylenol every 4-6 hours, using dosing on the back of the bottle, as needed for any fever or discomfort. Return to the emergency department with any worsening of your symptoms including any severe shortness of breath, high intractable fever, or with any acute dist ress. Prescriptions: Albuterol INH(or & Nicu Only) [ProAir HFA Inhaler] 2 puff IH QID PRN #1 inhalation PRN Reason: Shortness Of Breath Benzonatate [Tessalon Perles] 100 mg PO Q8HR PRN #20 capsule PRN Reason: Cough Time of Disposition: 10:01
[2019-09-02 08:36] LABS: BUN/Creatinine Ratio 11; Blood Urea Nitrogen 10 mg/dL (7-17); Calcium 8.7 mg/dL (8.4-10.2); Hemolysis Index 8
[2019-09-02 08:57] LABS: Bilirubin,Urine NEG (Negative); Blood,Urine NEG (Negative); Color,Urine Yellow (Yellow); Mucus,Urine FEW /HPF; Protein,Urine <15 mg/dL mg/dL (Negative); Urobilinogen,Urine < 2.0 mg/dL (<2.0)
[2019-09-02] MEDS ORDERED: BENZONATATE 100 MG CAP PO ONE (09:01)
[2019-09-02] MEDS ORDERED: ACETAMINOPHEN 325 MG TAB PO ONE (09:01)
[2019-09-02] MEDS ORDERED: IPRATROPIUM/ALBUTEROL SULFATE 3 ML AMPUL.NEB IH ONE (09:08)
== END 2019-09-02 10:09 | disposition home or self-care (01) ==
LOC: ED 07:09
DX: J40 Bronchitis, not specified as acute or chronic (principal); B34.9 Viral infection, unspecified; K21.9 Gastro-esophageal reflux disease without esophagitis; G43.909 Migraine, unspecified, not intractable, without status migrainosus; E11.9 Type 2 diabetes mellitus without complications; I10 Essential (primary) hypertension; Z88.6 Allergy status to analgesic agent; Z88.5 Allergy status to narcotic agent; Z88.0 Allergy status to penicillin; Z79.899 Other long term (current) drug therapy
CPT/HCPCS: 36415; 71046; 80048; 81001; 84484; 84703; 85025; 85379; 93005; 93010; 94640; 94644

== ENCOUNTER 2019-09-25 05:59 | Emergency (ER) | payer SELFPAY ==
[2019-09-25] MEDS ORDERED: NITROGLYCERIN 2% OINT 1 GM TP ONE (07:33)
[2019-09-25] MEDS ORDERED: ACETAMINOPHEN 500 MG TAB PO ONE (07:34)
[2019-09-25] MEDS ORDERED: CLOPIDOGREL 300 MG TAB PO ONE (07:34)
--- NOTE | 2019-09-25 07:44 | Emergency Department Report ---
HPI - General Chief Complaint: Chest Pain Time Seen by Provider: 09/25/19 06:59 - HPI HPI: Room 24 The patient is a 48-year-old female present with chief complaint of chest pain. The patient states she has had chest pain for approximately 1 month. The patient states she was tested for COVID-19 09/03/2019 and received a positive result 09/14/2019. Patient was self quarantine. The patient states all of her symptoms have improved with exception of her chest pain. Patient states that her chest pain worsened and feels sharp and pressure-like in nature radiating to the left upper extremity and left neck. Patient admits to shortness of breath but denies nausea/vomiting or diaphoresis. Patient states she is never had a stress test or cardiac catheterization. The patient gives her pain a score of 10/10 ED Past Medical Hx - Past Medical History Previous Medical History?: Yes Hx Diabetes: (UNSURE- RECENT HIGH A1C) Hx Pulmonary Embolism: Yes (2005- ON COUMADIN X 6 MONTHS) Hx GERD: Yes (DIET CONTROLLED) Hx Headaches / Migraines: Yes (MIGRAINES) - Surgical History Past Surgical History?: Yes Additional Surgical History: left knee scope 2005- dvt devolped during procedure, placed on coumadin for 6 months - Family History Family history: no significant - Social History Smoking Status: Unknown if ever smoked Substance Use Type: None - Medications Home Medications: Home Medications Medication Instructions Recorded Confirmed Last Taken Type hydrOXYzine PAMOATE [Vistaril] 25 mg PO Q6HR PRN 09/25/18 09/25/18 Unknown History Enoxaparin [Lovenox] 30 mg SQ Q12HR 7 Days #14 syringe 10/06/18 Unknown Rx traMADoL [Ultram] 50 mg PO Q6HR PRN #30 tablet 10/06/18 Unknown Rx Fluticasone [Flonase] 1 spray NS QDAY #1 bottle 10/09/18 Unknown Rx guaiFENesin [Mucinex] 600 mg PO BID #10 tab.er.12h 10/09/18 Unknown Rx Albuterol INH(or & Nicu Only) 2 puff IH QID PRN #1 inhalation 09/02/19 Unknown Rx [ProAir HFA Inhaler] Benzonatate [Tessalon Perles] 100 mg PO Q8HR PRN #20 capsule 09/02/19 Unknown Rx ED Review of Systems ROS: Stated complaint: CHEST PAIN/POSTIVE COVID Other details as noted in HPI Constitutional: denies: diaphoresis Eyes: denies: eye pain ENT: denies: throat pain Respiratory: shortness of breath Cardiovascular: chest pain Endocrine: no symptoms reported Gastrointestinal: denies: nausea, vomiting Musculoskeletal: denies: back pain Neurological: headache Physical Exam - Physical Exam Vital Signs: Vital Signs 09/25/19 09/25/19 06:57 07:07 Temperature 98.5 F Pulse Rate 92 H Respiratory 14 14 Rate Blood Pressure 125/80 Blood Pressure 125/80 [Right] O2 Sat by Pulse 100 100 Oximetry Physical Exam: GENERAL: The patient is well-developed well-nourished female lying on stretcher not appearing to be in acute distress. [] HEENT: Normocephalic. Atraumatic. Extraocular motions are intact. Patient has moist mucous membranes. NECK: Supple. Trachea midline CHEST/LUNGS: Clear to auscultation. There is no respiratory distress noted. HEART/CARDIOVASCULAR: Regular. There is no tachycardia. There is no gallop rub or murmur. ABDOMEN: Abdomen is soft, nontender. Patient has normal bowel sounds. There is no abdominal distention. SKIN: There is no rash. There is no edema. There is no diaphoresis. NEURO: The patient is awake, alert, and oriented. The patient is cooperative. The patient has normal speech MUSCULOSKELETAL: There is no evidence of acute injury. ED Course Vital Signs 09/25/19 09/25/19 06:57 07:07 Temperature 98.5 F Pulse Rate 92 H Respiratory 14 14 Rate Blood Pressure 125/80 Blood Pressure 125/80 [Right] O2 Sat by Pulse 100 100 Oximetry ED Medical Decision Making - Lab Data Result diagrams: 09/25/19 08:47 09/25/19 08:47 Laboratory Tests 09/25/19 09/25/19 09/25/19 08:47 08:47 08:47 WBC 7.7 RBC 4.67 Hgb 12.2 Hct 37.2 MCV 80 MCH 26 L MCHC 33 RDW 16.4 H Plt Count 304 Lymph % (Auto) 13.6 Giles % (Auto) 5.3 Eos % (Auto) 1.8 Baso % (Auto) 0.7 Lymph # 1.0 L Giles # 0.4 Eos # 0.1 Baso # 0.1 Seg Neutrophils % 78.6 H Seg Neutrophils # 6.0 PT 13.5 INR 1.02 D-Dimer < 135 Sodium 137 Potassium 4.2 Chloride 101.4 Carbon Dioxide 20 L Anion Gap 20 BUN 12 Creatinine 0.8 Estimated GFR > 60 BUN/Creatinine Ratio 15 Glucose 124 H Calcium 9.0 Total Bilirubin 0.20 AST 14 ALT 21 Alkaline Phosphatase 47 Total Creatine Kinase 63 CK-MB (CK-2) 1.2 CK-MB (CK-2) Rel Index 1.9 Troponin T < 0.010 NT-Pro-B Natriuret Pep 44.06 Total Protein 7.0 Albumin 3.6 L Albumin/Globulin Ratio 1.1 - EKG Data -: EKG Interpreted by Me EKG shows normal: sinus rhythm Rate: normal - EKG Data When compared to previous EKG there are: previous EKG unavailable Interpretation: nonspecific ST-T wave ramón (T wave inversion in lead III.) - Radiology Data Radiology results: report reviewed (Chest x-ray), image reviewed (Chest x-ray) interpreted by me: Chest x-ray-no focal infiltrates, no pneumothorax Findings [facility] [address] [place] [address] XRay Report Signed Patient: SERINA MILLAN MR#: [id number] : 1970 Acct:[id number] Age/Sex: 48 / F ADM Date: 09/25/19 Loc: ED Attending Dr: Ordering Physician: GHADA WINSLOW MD Date of Service: 09/25/19 Procedure(s): XR chest 1V ap Accession Number(s): [id number] cc: GHADA WINSLOW MD Fluoro Time In Minutes: CHEST 1 VIEW INDICATION: chest pain. COMPARISON: 09/02/2019 FINDINGS: Support devices: None. Heart: Within normal limits. Lungs/Pleura: No acute air space or interstitial disease. Additional findings: None. IMPRESSION: 1. No acute findings. Signer Name: Bal Beck MD Signed: 09/25/2019 10:56 AM Workstation Name: [id number] Transcribed By: MATT Dictated By: Bal Beck MD Electronically Authenticated By: Bal Beck MD Signed Date/Time: 09/25/19 1056 DD/ 1056 TD/TT: - Differential Diagnosis COVID-19, pneumothorax, pleurisy, PE, ACS, pericarditis Critical care attestation.: If time is entered above; I have spent that time in minutes in the direct care of this critically ill patient, excluding procedure time. ED Disposition Clinical Impression: Chest pain, COVID-19 virus infection Disposition: OP ADMIT IP TO THIS HOSP Is pt being admited?: Yes Does the pt Need Aspirin: No Condition: Fair Instructions: Chest Pain (ED) Time of Disposition: 11:22 (Hospitalist paged (Dr. Campbell))
[2019-09-25 09:05] LABS: Basophils # (Auto) 0.1 K/mm3 (0.0-0.1); Basophils % (Auto) 0.7 % (0.0-1.8); Eosinophils # (Auto) 0.1 K/mm3 (0.0-0.4); Eosinophils % (Auto) 1.8 % (0.0-4.3); Hematocrit 37.2 % (30.3-42.9); Hemoglobin 12.2 gm/dl (10.1-14.3); Lymphocytes % (Auto) 13.6 % (13.4-35.0); Mean Corpuscular HGB Conc 33 % (30-34); Mean Corpuscular Volume 80 fl (79-97); Monocytes # (Auto) 0.4 K/mm3 (0.0-0.8); Monocytes % (Auto) 5.3 % (0.0-7.3); Platelet Count 304 K/mm3 (140-440); Red Blood Count 4.67 M/mm3 (3.65-5.03); Red Cell Distribution Width 16.4 % (13.2-15.2)
[2019-09-25 09:27] LABS: Creatine Kinase MB 1.2 ng/mL (0.0-4.0)
[2019-09-25 09:28] LABS: Alanine Aminotransferase 21 units/L (7-56); Albumin 3.6 g/dL (3.9-5); BUN/Creatinine Ratio 15; Blood Urea Nitrogen 12 mg/dL (7-17); Hemolysis Index 6
[2019-09-25 09:58] LABS: INR 1.02 (0.87-1.13)
--- NOTE | 2019-09-25 11:01 | XRay Report ---
CHEST 1 VIEW INDICATION: chest pain. COMPARISON: 09/02/2019 FINDINGS: Support devices: None. Heart: Within normal limits. Lungs/Pleura: No acute air space or interstitial disease. Additional findings: None. IMPRESSION: 1. No acute findings. Signer Name: Bal Beck MD Signed: 09/25/2019 10:56 AM Workstation Name: [id number]
[2019-09-25] MEDS ORDERED: PANTOPRAZOLE 40 MG TAB PO ONE (12:11)
--- NOTE | 2019-09-25 12:13 | Event Note ---
Date: 09/25/19 48-year-old female with obesity hypoventilation syndrome, gastroesophageal reflux disease, migraine headaches presents to ED for evaluation of atypical chest pain. Patient seen and evaluated in the emergency department. Patient treated in accordance with chest pain protocol. Serial cardiac enzymes EKG and telemetry for monitoring were unremarkable for acute ischemia. D-dimer was normal. Patient found to have symptoms consistent with gastroesophageal reflux disease as well as possible bronchitis. Patient medically optimized and subsequently discharged home. Patient instructed to follow-up with primary care physician in 3 to 5 days for reevaluation, patient also instructed to follow-up with cardiology within 1 week for further testing. Patient also instructed to follow-up with gastroenterology for possible endoscopy. Patient reports testing positive for coronavirus on 09/14/2019. Patient instructed to continue prehospital quarantine and to follow-up with primary care physician as previously instructed. Patient instructed to continue frequent handwashing, lying in the prone position while in bed and while sleeping, and to wear facemask when in public. Patient also instructed to continue to monitor for public service announcements regarding updated care plans for COVID-19. Physical Exam: GENERAL: The patient is well-developed well-nourished female lying on stretcher not appearing to be in acute distress. [] HEENT: Normocephalic. Atraumatic. Extraocular motions are intact. Patient has moist mucous membranes. NECK: Supple. Trachea midline CHEST/LUNGS: Clear to auscultation. There is no respiratory distress noted. HEART/CARDIOVASCULAR: Regular. There is no tachycardia. There is no gallop rub or murmur. ABDOMEN: Abdomen is soft, nontender. Patient has normal bowel sounds. There is no abdominal distention. SKIN: There is no rash. There is no edema. There is no diaphoresis. NEURO: The patient is awake, alert, and oriented. The patient is cooperative. The patient has normal speech MUSCULOSKELETAL: There is no evidence of acute injury.
[2019-09-25 20:00] VITALS: BP 118/73
== END 2019-09-25 19:30 | disposition admitted as inpatient to this hospital (09) ==
LOC: ED 05:59
DX: U07.1 COVID-19 (principal); R07.9 Chest pain, unspecified; K21.9 Gastro-esophageal reflux disease without esophagitis; Z88.6 Allergy status to analgesic agent; Z79.899 Other long term (current) drug therapy
CPT/HCPCS: 36415; 71045; 80053; 82550; 82553; 83880; 84484; 85025; 85379; 85610; 93005; 93010